=== PATIENT | female | born 1955 | race African-American/Black ===

== ENCOUNTER 2024-01-27 13:17 | Emergency (ER) | payer OTHER ==
[~2024-01-27] VITALS: Ht 170.2 cm; Wt 64.0 kg
[2024-01-27 13:22] VITALS: O2SAT 96
[2024-01-27 14:14] LABS: HEMATOCRIT. 24.5 % (36.0-48.0); HEMOGLOBIN. 7.7 g/dL (12.0-16.0); MEAN CORPUSCULAR HEMOGLOBIN 28.7 pg (28.0-32.0); MEAN CORPUSCULAR HGB CONC 31.6 g/dL (31.0-37.0); MEAN CORPUSCULAR VOLUME 90.8 fL (81.0-99.0); MEAN PLATELET VOLUME 6.6 fl (7.4-10.4); PLATELET 730 x1000/uL (130-400); RED CELL DISTRIBUTION WIDTH 16.8 % (11.6-14.6); WHITE BLOOD COUNT 12.9 x1000/uL (4.5-11.0)
[2024-01-27 14:18] LABS: INR 1.3; PROTHROMBIN TIME 14.2 sec (9.6-11.0)
[2024-01-27 14:20] LABS: DIFFERENTIAL COMMENT 1
[2024-01-27 14:23] LABS: LACTIC ACID 2.5 mmol/L (0.4-2.0)
[2024-01-27] MEDS: SODIUM CHLORIDE 0.9% 1000ML BAG (SEPSIS BOLUS) IV ONE (14:24)
[2024-01-27 14:25] LABS: ALANINE AMINOTRANSFERASE < 7 IU/L (10-49); ALBUMIN 2.6 g/dL (3.2-4.8); ASPARTATE AMINOTRANSFERASE 16 IU/L (<34); BILIRUBIN TOTAL 0.4 mg/dL (0.1-1.0); CALCIUM 7.3 mg/dL (8.7-10.4); CARBON DIOXIDE 26 mEq/L (21-32); CHLORIDE 106 mEq/L (98-107); CREATININE 0.7 mg/dL (0.6-1.0); GLUCOSE 110 mg/dL (70-105); POTASSIUM 3.9 mEq/L (3.5-5.1); PROTEIN TOTAL 5.9 g/dL (6.0-8.3); SODIUM 139 mEq/L (136-145); UREA NITROGEN BLOOD 21 mg/dL (9-23)
[2024-01-27 14:26] LABS: TROPONIN I HIGH SENSITIVITY < 4 ng/L (3.0-34)
[2024-01-27] MEDS: PIPERACILLIN/TAZO 3.375G/50ML 50 ML IV ONE (14:41)
[2024-01-27] MEDS: VANCOMYCIN 1G PREMIX 200 ML IV ONE (15:12)
[2024-01-27 16:37] LABS: TROPONIN I HIGH SENSITIVITY < 4 ng/L (3.0-34)
[2024-01-27 16:54] LABS: PLATELET ESTIMATE INCREASED
[2024-01-27 18:14] VITALS: BP 109/66; PULSE 98; RESP 17; TEMP 97.9
== END 2024-01-27 19:21 | disposition short-term general hospital (02) ==
LOC: ER 13:17 → EDBEDREQ 14:32 → EDBEDREQSVC 14:32 → ER 19:21 → CANBEDREQ 22:54
DX: E87.20 Acidosis, unspecified (principal); Z85.9 Personal history of malignant neoplasm, unspecified; Z20.822 Contact with and (suspected) exposure to COVID-19
CPT/HCPCS: 99285; 96365; 71045; 96367; 87426; 80053; 83880; 83605; 83690; 85025; 85610; 87040; 84484; 36415; 84145; 93005; J2543; J3370; J7030